=== PATIENT | female | born 1970 | race Caucasian/White ===

== ENCOUNTER → 2016-08-04 | Outpatient (CLI) | payer OTHER ==
[~2016-08-04] MED LIST: LUNESTA PO
--- NOTE | ~2016-08-04 | MR17 ---
[facility] A Service of [facility] RADIOLOGY TEXT RESULTS PATIENT: LIBRA CHAUDHARY LOCATION: [facility] : 74 UNIT #: [id number] AGE: [address]: Noris Foster MD SEX: F ORDER DR: [id number] [id number] O MR#: [id number] Acc #: [id number] NAME: LIBRA CHAUDHARY : 1970 SEX: F STUDY DATE/TIME: 08/04/2016 8:58 UNIT: [facility] ROOM: STUDY DESCRIPTION: MR Brain WWo Contrast Attending Physician: Noris Foster M.D. Referring Physician: Noris Foster M.D. Ordering Physician: Noris Foster M.D. Primary Care Physician: Noris Foster M.D. MRI CENTER REPORT This report is preliminary unless electronic signature is present. EXAM Brain MRI with and without HISTORY Concussion. Patient fell forward 06/01/2016 and hit the front of her head. Now the back for head hurts. Still dizzy and vertigo since the fall with headache and nausea. Question post concussive syndrome. Question prior concussion 7 years ago. No cancer history. FINDINGS MRI of the brain was performed prior to and following intravenous administration of 13 mL of MultiHance. There is a comparison study from 2006. There is no evidence for a recent ischemic insult on the diffusion series. There is no MRI evidence for intracranial hemorrhage. The ventricles are normal in size and configuration and the villa-white junction is age appropriate. There is a small focus of signal abnormality in the left inferior cerebellar hemisphere peripherally which is new from prior study about 6 mm in diameter and probably a small incidental lacune. Please correlate with possible risk factors for small vessel disease. The major intracranial flow voids are maintained. There is no intracranial mass effect. Following contrast administration, there is no pathologic intracranial enhancement. There is minimal mucosal thickening paranasal sinuses without sinus air-fluid level and mastoid air cells are clear. Incidental artifact noted brainstem region on the FLAIR sequence only. IMPRESSION There is a small interval lacunar type insult to the left inferior cerebellar hemisphere. Please correlate for risk factors. No acute STS. [facility] A Service of [facility] RADIOLOGY TEXT RESULTS PATIENT: LIBRA CHAUDHARY LOCATION: [facility] : 74 UNIT #: [id number] AGE: [address]: Noris Foster MD SEX: F ORDER DR: intracranial abnormality is appreciated. Otherwise essentially normal MRI of the brain with and without contrast. Dictated by... Madiha Merrill M.D. THIS IS AN ELECTRONICALLY VERIFIED REPORT Madiha Merrill M.D. at 08/04/2016 5:03 PM LEONARDO/irina TD: 08/04/2016 15:53 JOB #: [id number] MRI CENTER REPORT Page 1 of 1
== END | disposition home or self-care (01) ==
LOC: SMRI 08:31
DX: S06.0X9A Concussion with loss of consciousness of unspecified duration, initial encounter (principal); R51 Headache; R11.0 Nausea; R42 Dizziness and giddiness
CPT/HCPCS: 70553; A9581

== ENCOUNTER → 2016-08-29 | Outpatient (CLI) | payer OTHER ==
--- NOTE | ~2016-08-29 | MY29 ---
[facility] A Service of [facility] RADIOLOGY TEXT RESULTS PATIENT: LIBRA CHAUDHARY LOCATION: [facility] : 74 UNIT #: [id number] AGE: [address]: CLAUDIA DANIEL SEX: F ORDER DR: [id number] [id number] [place], [place] [address] [id number] O MR#: [id number] Acc #: [id number] NAME: LIBRA CHAUDHARY : 1970 SEX: F STUDY DATE/TIME: 08/29/2016 13:38 UNIT: [facility] ROOM: STUDY DESCRIPTION: MY VALDO SCREENING W/ CAD BILAT Attending Physician: Claudia Daniel Aprn Referring Physician: Claudia Daniel Aprn Primary Care Physician: Noris Foster M.D. MEDICAL IMAGING REPORT This report is preliminary unless electronic signature is present EXAM Digital screening mammogram, 08/29/2016 HISTORY 46-year-old woman no risk elevation. Annual screening. COMPARISON 12/08/2008 FINDINGS Digital imaging of each breast was completed utilizing screening protocol. Review includes FDA-approved CAD device. Breast parenchyma is dense though somewhat heterogeneous with subareolar duct prominence noted. There is a generalized small nodular pattern in each breast. I see no suspicious mass characteristics. There are no microcalcifications and no suspicious architectural distortion. IMPRESSION Benign mammogram. Annual screening recommended. Patients over the age of 40 are entered into a reminder system with target due date for the next mammogram. A result letter will also be sent to the patient. BIRADS: 2 Benign Finding Dictated by... Heri Bauer M.D. THIS IS AN ELECTRONICALLY VERIFIED REPORT Heri Bauer M.D. at 08/30/2016 2:38 PM FRANCIA/jeff [facility] A Service of [facility] RADIOLOGY TEXT RESULTS PATIENT: LIBRA CHAUDHARY LOCATION: [facility] : 74 UNIT #: [id number] AGE: [address]: CLAUDIA DANIEL SEX: F ORDER DR: TD: 08/29/2016 15:54 JOB #: [id number] MEDICAL IMAGING REPORT Page 1 of 1 COPY
== END | disposition home or self-care (01) ==
LOC: CWCC 08-25 14:30
DX: Z12.31 Encounter for screening mammogram for malignant neoplasm of breast (principal)
CPT/HCPCS: G0202